=== PATIENT | male | born 1960 | race Caucasian/White ===

== ENCOUNTER 2020-01-06 09:38 | Emergency (ER) | payer OTHER, SELFPAY ==
[2020-01-06 09:49] VITALS: BP 143/84; PULSE 76; RESP 16; TEMP 36.7; O2SAT 100
--- NOTE | 2020-01-06 10:19 | ED.NAVMDI ---
HPI - Nausea/Vomiting/Diarrhea General Chief complaint: Nausea/Vomiting/Diarrhea Stated complaint: diarrhea/body aches/fatigue Source: patient and RN notes reviewed Mode of arrival: ambulatory Limitations: no limitations History of Present Illness HPI Narrative: The patient, previously mostly healthy, presents with about a week and a half long history of diarrhea. Patient states he has 2-3 episodes of loose stools per day; no fever, nausea/vomiting, travel, blood, tenesmus, abdominal pain, sick family, foreign pets/animals, cough, sore throat, loss of taste or smell, rash. He contacted his his doctor by web, and was treated symptomatically and with the suggestion of possible stool cultures. He had a COVID test a week ago, which will be offered to repeat. Related Data Home Medications Medication Instructions Recorded Confirmed metoprolol tartrate 01/06/20 pravastatin 01/06/20 pravastatin 01/06/20 Allergies Allergy/AdvReac Type Severity Reaction Status Date / Time No Known Allergies Allergy Mild Verified 11/01/09 10:33 Review of Systems Review of Systems: Narrative: General/Constitutional: No weight loss,fever Eyes: N0: Redness,discharge Ears/Nose/Throat: No: Epistaxis,ear discharge Respiratory: Denies: Hemoptysis Gastrointestinal: No Vomiting, Bleeding-rectal Skin: No Lumps, eruption Neurologic: No Focal Weakness,Sz Hematologic: Denies: Petechiae/Purpura Psychiatric: No: Suicida ideationl All Other Systems: Reviewed and Negative PMFSH Comments At time of signature, agree with nursing past medical, surgical, social and family history. There is no relevant family history pertinent to the presenting complaint Exam Narrative: Exam Narrative: General Appearance: Well appearing, No distress EYE: PERRLA, Conjunctiva clear Mouth/Throat: Normal appearing, Supple Respiratory: Airway patent, No respiratory distress Cardiovascular: RRR Abdomen: Soft, Non-tender, No massess, No organomegaly Musculoskeletal: Full ROM Skin: Warm, Dry Neurological: A&O x3, CN II-X intact Psychiatric: Normal mood, Normal affect Course Vital Signs Vital signs: Vital Signs Temperature 98.1 F 01/06/20 09:49 Pulse Rate 76 01/06/20 09:49 Respiratory Rate 16 01/06/20 09:49 Blood Pressure 143/84 H 01/06/20 09:49 Pulse Oximetry 100 01/06/20 09:49 Temperature 98.1 F 01/06/20 09:49 Pulse Rate 76 01/06/20 09:49 Respiratory Rate 16 01/06/20 09:49 Blood Pressure 143/84 H 01/06/20 09:49 Pulse Oximetry 100 01/06/20 09:49 Discharge Plan Discharge Clinical Impression: Diarrhea Qualifiers: Diarrhea type: unspecified type Qualified Code(s): R19.7 - Diarrhea, unspecified Patient Disposition: Home, Self-Care Condition: Stable Instructions: Antibiotic Form, Irritable Bowel Syndrome (ED), Acute Diarrhea (ED) Additional Instructions: Also try diet changes & diary, Imodium OTC, Prescriptions: New ciprofloxacin HCl [Cipro] 500 mg tablet 500 mg PO Q12H Qty: 7 RF: 0 No Action pravastatin 20 mg tablet RF: 0 pravastatin 20 mg tablet RF: 0 metoprolol tartrate 25 mg tablet RF: 0 Follow-up/Referrals: Per,Kristie Zamora MD [Primary Care Provider] - Discharge Date/Time: 01/06/20 10:29
== END 2020-01-06 10:29 | disposition home or self-care (01) ==
PROVIDERS: Emergency Provider Emergency Medicine; PCP Family Medicine
DX: R19.7 Diarrhea, unspecified (principal)
CPT/HCPCS: 99203; G0463

== ENCOUNTER 2020-01-06 10:28 | Outpatient (NON) | payer OTHER, SELFPAY ==
[2020-01-06 22:26] LABS: SARS-CoV-2 RNA PCR Negative
== END 2020-01-06 10:29 ==
PROVIDERS: PCP Family Medicine; Visit Provider Emergency Medicine
DX: R19.7 Diarrhea, unspecified (principal); Z20.828 Contact with and (suspected) exposure to other viral communicable diseases
CPT/HCPCS: 87635; C9803; U0003

== ENCOUNTER 2020-01-06 12:06 | Outpatient (CLI) | payer OTHER, SELFPAY | END 2020-01-06 12:07 | disposition home or self-care (01) | PROVIDERS: PCP Family Medicine; Visit Provider Emergency Medicine | DX: R19.7 Diarrhea, unspecified (principal) | CPT/HCPCS: 87045; 87046; 87186; 87427 ==

== ENCOUNTER 2023-01-14 14:42 | Outpatient (CLI) | payer OTHER, SELFPAY ==
--- NOTE | 2023-01-14 | ECHO_ITS ---
Patient Info Name: Marv Coley Age: 62 years : 1960 Gender: Male Ht: 70 in Wt: 215 lbs BSA: 2.22 m2 HR: 67 bpm BP: 117 / 85 mmHg Heart Rhythm: Sinus Rhythm Technical Quality: Good Exam Date: 01/14/2023 3:17 PM Exam Location: [facility] Patient Status: Outpatient Admit Date: 01/14/2023 Staff Ordering Physician: Tae Xavier MD (charles/chan) Supervisor Chemical: Lars Hopson RDCS Attending Provider: Tae Xavier MD (charles/chan) Referring Physician: Duc OBB; Exam Type: CA echo doppler color flow Study Info Indications - palpatation and pre op Complete two-dimensional, color flow and Doppler transthoracic echocardiogram is performed. Summary 1. Complete two-dimensional, color flow and Doppler transthoracic echocardiogram is performed. 2. Left ventricular chamber dimension is normal. 3. Left ventricular systolic function is normal, estimated at 65-70%. 4. The left ventricular diastolic function is grade I diastolic dysfunction. 5. Right ventricular systolic function is normal. 6. No significant valvular disease. Left Ventricle Left ventricular chamber dimension is normal. Left ventricular systolic function is normal, estimated at 65-70%. There is no increased left ventricular wall thickness. The left ventricular diastolic function is grade I diastolic dysfunction. Right Ventricle Right ventricular chamber dimension is normal. Right ventricular systolic function is normal. Left Atria Left atrial chamber dimension is normal. Right Atria Right atrial chamber dimension is normal. Atrial Septum Intact interatrial septum visualized by color flow imaging. Aortic Valve The aortic valve is trileaflet. There is no aortic valve stenosis. There is no aortic valve regurgitation. Pulmonic Valve The pulmonic valve is not well visualized. There is trace pulmonic regurgitation. Mitral Valve There is no mitral valve regurgitation. Tricuspid Valve There is trace tricuspid valve regurgitation. Pericardium/Pleural The pericardium appears epicardial fat pad. There is no pericardial effusion. Inferior Vena Cava Normal inferior vena cava with >50% collapse upon inspiration consistent with normal right atrial pressure, 3 mmHg. Aorta The aortic root size at the sinus of Valsalva is normal. Left Ventricular Outflow Tract Name Value Normal LVOT 2D LVOT Diameter 2.2 cm LVOT Doppler LVOT Peak Gradient 3 mmHg LVOT Mean Gradient 1 mmHg LVOT VTI 20 cm LVOT VTI/AV VTI Ratio 0.7 LVOT Stroke Volume 76 ml LVOT CO 4.3 l/min LVOT CI 1.9 l/min/m2 Pulmonic Valve Name Value Normal RVOT Doppler RVOT Peak Gradient 2 mmHg PV Doppler
== END 2023-01-14 14:43 | disposition home or self-care (01) ==
LOC: ANHCARD 14:43
PROVIDERS: PCP Family Medicine; Visit Provider Internal Medicine
DX: R00.2 Palpitations (principal)
CPT/HCPCS: 93306

== ENCOUNTER 2024-07-31 13:20 | Outpatient (CLI) | payer MEDICARE, SELFPAY ==
--- NOTE | ~2024-07-31 | XR_ITS ---
XR lumbar spine 2-3V 07/31/2024 13:48 Indication: Sciatica Procedure: 3 views lumbar spine Comparison: No prior studies for comparison. Findings: Vertebral body heights are maintained. There is no significant disc narrowing. There is mul tilevel facet hypertrophy. No evidence for spondylolisthesis. There is hypertrophy of the spinous pro cesses. There is levoscoliosis. Sacral foramen are symmetric. Impression: 1: Severe lumbar spondylosis with levoscoliosis. Reviewed, dictated and finalized at location A. Impression: 1: Severe lumbar spondylosis with levoscoliosis.
--- NOTE | ~2024-07-31 | XR_ITS ---
XR hip LT min 2V 07/31/2024 13:48 Indication: Left hip pain Procedure: 2 views left hip Comparison: No prior studies for comparison. Findings: There is mild osteoarthritis of the left hip. No fracture, subluxation or dislocation. No s ignificant soft tissue abnormality. No foreign bodies. Impression: 1: Mild osteoarthritis of the left hip. Reviewed, dictated and finalized at location A. Impression: 1: Mild osteoarthritis of the left hip.
--- OUTSIDE RECORDS SUMMARY | 2024-07-31 14:48 | XMS_ITS | Clinical Summary ---
Author Organization [facility] at [facility] Office Center Address [address] [place] [address] Care Team Providers Care Skate Boarder Name Role Phone Graeme Albarado MD Primary Care Provider [phone] Negrito Kirby MD Unavailable [phone] Allergies No known active allergies Medications metoprolol (LOPRESSOR) 25 mg tablet 1 tablet (25 mg total) 2 (two) times a day Active aspirin 81 mg chewable tablet Take 1 tablet (81 mg total) by mouth 2 (two) times a day Instructed to hold for 5 days prior to surgery per Mirta 2 Active tadalafiL (CIALIS) 5 mg tablet Take 1 tablet (5 mg total) by mouth daily Takes for BPM Active ramipriL (ALTACE) 10 mg capsule ramipril 10 mg capsule TAKE 1 CAPSULE BY MOUTH EVERY DAY Active apixaban (ELIQUIS) 5 mg tabletIndications :atrial fibrillation Take 1 tablet (5 mg total) by mouth 2 (two) times a day 180 tablet 3 4 Active atorvastatin (LIPITOR) 40 mg tablet TAKE 1 TABLET(40 MG) BY MOUTH DAILY 90 tablet 2 4 Active Active Problems Problem Noted Date Diagnosed Date Anticoagulation management encounter 10/08/2023 Paroxysmal atrial fibrillation 05/07/2023 Hyperlipidemia 11/13/2022 Varicose veins of left leg with edema 10/27/2016 Assessment & Plan (09/04/2022 10:48 AM CDT): Following up today status post left EVLT with 16 stab phlebectomies. The stab incisions have healed he is doing well denies any concerns or complaints. Plan: Follow-up as needed. Assessment & Plan (06/22/2022 3:44 PM CERTIFIED SURGICAL FIRST ASSISTANT): Impression: Patient has left lower extremity varicosities with pain despite compression therapy. Venous reflux of the left lower extremity reveals significant reflux throughout the left great saphenous vein. No open ulcerations are noted. Plan: Patient would like to wait for this procedure to be done in one year. Discussed with the patient waiting greater than 6 months would require a new evaluation, noninvasive study, and new insurance authorization. Patient voices understanding. Recommend patient to continue utilizing compression therapy. Patient will call if he wishes to proceed. Follow up as needed. 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 Continue compression therapy. Left lower extremity reflux regional hr manager ordered for further evaluation. Will follow-up in 2-3 weeks. Assessment & Plan (01/31/2019 10:22 AM CDT): Impression: Stable varicose vein left lower extremity which are not painful. His edema is controlled with compression therapy. Plan: Continue daily compression therapy. Patient to follow up on as-needed basis. Abnormal glucose level 01/12/2014 Benign essential hypertension 01/01/2012 Assessment & Plan (06/22/2022 3:45 PM CERTIFIED SURGICAL FIRST ASSISTANT): Impression: Chronic hypertension. Plan: Continue Lopressor 25 mg Assessment & Plan (06/04/2022 1:57 PM CERTIFIED SURGICAL FIRST ASSISTANT): Stable continue metoprolol 25 mg. Assessment & Plan (01/31/2019 10:22 AM CDT): Impression: Stable hypertension. Plan: Continue current antihypertensive regimen as directed by PCP. Benign prostatic hyperplasia 01/01/2012 Resolved Problems Problem Noted Date Diagnosed Date Resolved Date Palpitations 11/13/2022 05/07/2023 Pure hypercholesterolemia 01/01/2012 Assessment & Plan (06/22/2022 3:45 PM CERTIFIED SURGICAL FIRST ASSISTANT): Impression: Chronic hypercholesteremia Plan: Continue pravastatin 20 mg Assessment & Plan (06/04/2022 1:56 PM CERTIFIED SURGICAL FIRST ASSISTANT): Stable continue pravastatin 20 mg. Immunizations Immunization Administration Dates Next Due Influenza, Trivalent, IM (MDV) 01/26/2011 Tdap 11/08/2008 Surgical History Surgery Date Site/Laterality Comments KNEE CARTILAGE SURGERY 05/03/1975 - 05/02/1976 Bilateral ENDOVENOUS ABLATION SAPHENOU S VEIN W/ LASER Left COLONOSCOPY Medical History Medical History Date Comments HTN (hypertension) Varicose veins of left lower extremity Paroxysmal atrial fibrillation (HCC) Hyperlipidemia BPH (benign prostatic hyperplasia) Family History Medical History Relation Name Comments Stroke Father Cancer Mother Relation Name Status Comments Father Mother Social History Tobacco Use Types Packs/Day Years Used Date Smoking Tobacco: Never Smokeless Tobacco: Never Alcohol Use Standard Drinks/Week Comments Yes 0 (1 standard drink = 0.6 oz pur e alcohol) AUDIT-C Answer Date Recorded Q1: How often do you have a drink containing alc ohol? 2-3 times a week 06/15/2023 Q2: How many drinks containi ng alcohol do you have on a typical day when you are drinking? 3 or 4 06/15/2023 Q3: How often do you have si x or more drinks on one occasion? Never 06/15/2023 Personal Safety Answer Date Recorded Have you ever been in or are you currently in a harmful physical or emotional relationship or is someone making you feel afraid or unsafe? Denies 06/30/2023 Sex and Gender Information Value Date Recorded Sex Assigned at Not on file Legal Sex Male 6:22 PM CERTIFIED SURGICAL FIRST ASSISTANT Gender Identity Not on file Sexual Orientation Not on file Obstetrics History Last Filed Vital Signs Vital Sign Reading Time Taken Comments Blood Pressure 120/70 10/08/2023 9:44 AM CDT Pulse 54 10/08/2023 9:44 AM CDT Temperature 36.2 C (97.1 F) 06/30/2023 10:10 AM CERTIFIED SURGICAL FIRST ASSISTANT Respiratory Rate 14 06/30/2023 10:4 0 AM CERTIFIED SURGICAL FIRST ASSISTANT Oxygen Saturation 96% 10/08/2023 9:44 AM CDT Inhaled Oxygen Concentration - - Weight 100.1 kg (220 lb 9.6 oz) 10/08/2023 9:44 AM CDT Height 177.8 cm (5' 10 ) 10/08/2023 9:44 AM CDT Body Mass Index 31.65 10/08/2023 9:44 AM CDT Plan of Treatment Health Maintenance Due Date Last Done Comments Colon Cancer Screening-Colonoscopy 1960 Depression Screening 1960 Fall Risk Assessment 1960 Hepatitis C Screening 1960 Prostate Cancer Screening-PSA 1960 Hepatitis B Screening 1976 Pneumococcal vaccine 65+ (1 of 1 - PCV) 2008 Well Visit 65+ 09/26/2023 Covid-19 Vaccine (2023-2 5 season) 2024 03/09/2022, 08/13/2021, 02/07/2021, Additional history exists Influenza Vaccine (#1) 2024 , 03/03/2022, 01/31/2020, Additional history exists DTaP/Tdap/Td Vaccine (3 - Td or Tdap) 06/12/2029 06/12/2019, 11/08/2008 Zoster Vaccine Completed 06/03/2020, 04/03/2020 Medical Devices Implanted Type Area [employer] Trolley Inspecting Dispatcher Device Identifier Shelf Expiration Date Model / Serial / Lot [employer] Mesh Surgical Mid Anatomical Synthetic Patch 3dmax 5x7in [id number] - [id number] Implanted:Qty: 1 on 06/30/2023 by Negrito Kirby MD at [facility] Right: Abdomen [employer] [id number] 01/29/2028 [id number] / / [id number] Insurance [employer] OPEN ACCESS MEDICARE [facility] MEDICARE SUPPLEMENT Care Teams Skate Boarder Relationship Specialty Start Date End Date Graeme Albarado MD [address] [id number] PCP - General Family Medicine 12/30/18 Negrito Kirby MD [address] [place] [id number] Consulting Physician General Surgery 06/30/23
--- OUTSIDE RECORDS SUMMARY | 2024-07-31 14:48 | XMS_ITS | Data Portability ---
Author Organization [facility] Address [address] [place] [address] Care Team Providers Care Director Of Design Name Role Phone JONOFreemanKRISTIE Primary Care Provider FRANSISCO LYON Physician Office Rep KAUSHAL CELESTIN Urologist Assessment No assessment recorded. Plan of Treatment Reminders Order Date Submit Date Provider Last Modified By Organization Details Last Modified Time Details Appointments None recorde d. Lab lipid panel, serum 2023 024 [facility], [address] [facility], [facility], [place], [address], 4 08:24:40 CMP, serum or plasma 2023 024 [facility], [address] [facility], [place], [address], 4 08:24:41 CBC 2023 024 [facility], [address] [facility], [facility], [place], [address], 4 08:24:46 magnesi um, serum or plasma 2023 024 [facility], [address] [facility], [facility], [place], [address], 4 08:24:44 TSH, ultra-s ensitiv e, serum 2023 024 [facility], [address], [address], [place], [address], 4 08:24:42 HbA1c (hemogl obin A1c), blood 2023 024 [facility], [address], [address], [place], [address], 4 08:24:43 PSA, total, serum or plasma 2023 024 [facility], [address], [address], [place], [address], 4 08:24:45 PSA, total, serum or plasma 2022 023 [facility], [address], [address], [place], [address], 3 12:12:45 magnesi um, serum or plasma 2022 023 [facility], [address], [address], [place], [address], 3 20:08:55 TSH, ultra-s ensitiv e, serum 2022 023 [facility], [address], [address], [place], [address], 3 12:12:44 lipid panel, serum 2022 023 [facility], [address], [address], [place], [address], 3 20:08:54 CMP, serum or plasma 2022 023 [facility], [address], [address], [place], [address], 3 20:08:54 CBC 2022 023 [facility], [address], [address], [place], [address], 3 20:08:55 HbA1c (hemogl obin A1c), blood 2022 023 R[facility]ERTO In-Office Order, Internal Use Only DO Not Attach Compendium DO Not Attach Compendium, Do Not Delete/merge, [id number] 3 11:00:50 lipid panel, serum 2021 022 [facility], [address], [address], [place], [address], 14:12:24 BMP, serum or plasma 2021 022 [facility], [address], [address], [place], [address], 14:12:23 CBC 2021 022 [facility], [address], [address], [place], [address], 14:12:23 urinaly sis, dipstic k 2021 022 R[facility]O In-Office Order, Internal Use Only DO Not Attach Compendium DO Not Attach Compendium, Do Not Delete/merge, [id number] 12:40:01 HbA1c (hemogl obin A1c), blood 2021 022 [facility], [address], [address], [place], [address], 14:12:25 HIV 2 Ab, signal/ cutoff, IA, serum or plasma 2021 022 [facility], [address], [address], [place], [address], 14:12:24 PSA, total, serum or plasma 2021 022 [facility], [address] [facility], [address], [place], [address], 2 14:12:25 SARS CoV 2 IgG Ab, QL IA, serum or plasma 2020 021 [facility], [address] [facility], [address], [place], [address], 1 09:12:59 Referral gastroe nterolo gist referra l - patient had last colonos copy in 06/2024- - needs to set up 10 year C SCope please 2023 024 ROVERTO Gilliam MD, [address], [address], [place], [address], 4 12:26:48 general surgeon referra l - PATIENT IS SCHEDUL ED WITH DR KIRBY 3@2:55P .M [facility] N! 2022 023 [email or web address] Deonte Kirby MD, [address] , [address], [place], [address], 4 11:49:07 cardiol ogist referra l - FH A Fib and CADpati ent has chol and BP and preDM as well as palpita tionspr eop for hernia* to Dr Tomeka aguilera at [facility] n?* [address] [facility], [address], [address], [place], [address], 3 08:52:39 Procedures cryosur som (PROC) 2020 021 [email or web address] Not available 1 12:12:37 Surgeries None recorde d. Imaging XR, hip, unilate ral, 2 or [address] [facility] (Imaging), [address], [place], [address], 5 04:31:31 XR, lumbosa cral spine, 2 or [address] [facility] (Imaging), [address] [facility] [address], [place], [address], 5 04:31:31 US, screeni ng for abdomin al aortic aneurys m [address] [facility] (Imaging), [address] [facility] [address], [place], [address], 4 15:38:44 Medication Orders baclofe n 5 mg tablet 2024 025 [id number], [address], [place], [place], [id number], 5 12:28:15 tadalaf il 5 mg tablet 2023 024 [id number], [address], [place], [place], [id number], 4 13:25:57 tadalaf il 5 mg tablet 2021 022 [facility] #[id number], [address], [place], [place], [id number], 2 12:15:26 Patient TargetsNo targets recorded. Patient Instructions Encounter Date Encounter Id Patient Instructions Last Modified By Organization Details Last Modified Time 10/07/2023 [id number] Medicare Wellnes s Preventive Checklist Not available 10/07/2023 12:12:11 06/26/2024 [id number] A healthy lifestyle: care instructions Not available 06/26/2024 14:16:02 back stretches: exercises Not available 06/26/2024 12:28:10 sciatica: exercises Not available 06/26/2024 12:28:10 low back pain: exercises Not available 06/26/2024 12:28:09 Reason for Referral Physician Office Rep Referral for In termittent palpitations FH A Fib and CADpatient has chol and BP and preDM as well as palpitationspreop for hernia*to Dr Tomeka Teran at [place]?* [facility] Date: 10/06/2022 General Surgeon Referral for Right inguinal hernia PATIENT IS SCHEDULED WITH DR KIRBY 12/01/2022@2:55P.[facility] LOCATION! Referring Physician: [facility], Encounter Date: 10/06/2022 Hvac Manager Referral for Screening for malignant neoplasm of colon patient had last colonoscopy in 06/2024-- needs to set up 10 year C SCope please Referring Physician: Kristie Ghotra, [facility], Encounter Date: 10/07/2023 Results Created Date Observation Date Name Description Value Unit Range Abnormal Flag Note LastModifiedBy Organization Detail LastModifiedTime 11/20/1911/20/2020 SARS- COV-2 ANTIB ALEXIS, IGG sars-cov-2 antibody, IgG Positi ve negati ve Resul ts sugge st recen t or prior infec tion with SARS- CoV-2 . Corre latio n with [facility] risk facto rs and other clini casandra and labor atory findi ngs is recom shantelle d. Serol ogic resul ts shoul d not be used as the sole basis to diagn ose or exclu de recen t SARS- CoV-2 infec tion. False posit alfie resul ts infre quent ly occur due to prior infec tion with other human Coron aviru ses. This assay was perfo rmed using the DiaSo rin Liais on(R) SARS- CoV-2 S1/S2 IgG assay . This assay detec ts antib odies again st SARS- CoV-2 spike prote in inclu ding the cap parts cutter tor lulu gomes (RBD) . Not Available [facility] ([facility]) [address] [facility], [place], [address], 11/20/2020 09:12:59 08/05/19 22 08/05/2021 CBC, PLATE LET, NO DIFFE RENTI AL WBC 4.5 x10e3 /uL 3.4-10 .8 Not Available [facility] ([facility]) [address] [facility], [place], [address], 08/06/2021 14:12:23 08/05/19 22 08/05/2021 CBC, PLATE LET, NO DIFFE RENTI AL RBC 4.72 x10e6 /uL 4.14-5 .80 Not Available [facility] ([facility]) [address] [place], [address], 08/06/2021 14:12:23 08/05/1908/05/2021 CBC, PLATE LET, NO DIFFE RENTI AL hemoglobin 15.6 g/dL 13.0-1 7.7 Not Available [facility] ([facility]) [address] [place], [address], 08/06/2021 14:12:23 08/05/1908/05/2021 CBC, PLATE LET, NO DIFFE RENTI AL hematocrit 44.6 % 37.5-5 1.0 Not Available [facility] ([facility]) [address] [place], [address], 08/06/2021 14:12:23 08/05/19 22 08/05/2021 CBC, PLATE LET, NO DIFFE RENTI AL MCV 95 fL 79-97 Not Available [facility] ([facility]) [address] [place], [address], 08/06/2021 14:12:23 08/05/1908/05/2021 CBC, PLATE LET, NO DIFFE RENTI AL MCH 33.1 pg 26.6-3 3.0 above high normal Not Available [facility] ([facility]) [address] [place], [address], 08/06/2021 14:12:23 08/05/19 22 08/05/2021 CBC, PLATE LET, NO DIFFE RENTI AL MCHC 35.0 g/dL 31.5-3 5.7 Not Available [facility] ([facility]) [address] [place], [address], 08/06/2021 14:12:23 08/05/19 22 08/05/2021 CBC, PLATE LET, NO DIFFE RENTI AL RDW 11.9 % 11.6-1 5.4 Not Available [facility] ([facility]) [address] [place], [address], 08/06/2021 14:12:23 08/05/19 22 08/05/2021 CBC, PLATE LET, NO DIFFE RENTI AL platelets 247 x10e3 /uL 150-45 0 Not Available [facility] ([facility]) [address] [place], [address], 08/06/2021 14:12:23 08/05/19 22 08/05/2021 CBC, PLATE LET, NO DIFFE RENTI AL NRBC FOOT PRESS OPERATOR Not Available [facility] ([facility]) [address] [place], [address], 08/06/2021 14:12:23 08/05/19 22 08/05/2021 BASIC METAB OLIC PANEL (8) glucose 100 mg/dL 65-99 above high normal Not Available [facility] ([facility]) [address] [place], [address], 08/06/2021 14:12:23 08/05/19 22 08/05/2021 BASIC METAB OLIC PANEL (8) BUN 24 mg/dL 8-27 Not Available [facility] ([facility]) [address] [place], [address], 08/06/2021 14:12:23 08/05/19 22 08/05/2021 BASIC METAB OLIC PANEL (8) creatinine 1.00 mg/dL 0.76-1 .27 Not Available [facility] ([facility]) [address], [place], [address], 08/06/2021 14:12:23 08/05/19 22 08/05/2021 BASIC METAB OLIC PANEL (8) eGFR 85 mL/mi n/1.7 3 >59 Not Available [facility] ([facility]) [address], [place], [address], 08/06/2021 14:12:23 08/05/19 22 08/05/2021 BASIC METAB OLIC PANEL (8) BUN/creatini ne ratio 24 10-24 Not Available [facility] ([facility]) [address] [facility], [place], [address], 08/06/2021 14:12:23 08/05/19 22 08/05/2021 BASIC METAB OLIC PANEL (8) sodium 138 mmol/ L 134-14 4 Not Available [facility] ([facility]) [address] [facility], [place], [address], 08/06/2021 14:12:23 08/05/19 22 08/05/2021 BASIC METAB OLIC PANEL (8) potassium 5.3 mmol/ L 3.5-5. 2 above high normal Not Available [facility] ([facility]) [address], [place], [address], 08/06/2021 14:12:23 08/05/19 22 08/05/2021 BASIC METAB OLIC PANEL (8) chloride 102 mmol/ L 96-106 Not Available [facility] ([facility]) [address] [facility] [place], [address], 08/06/2021 14:12:23 08/05/19 22 08/05/2021 BASIC METAB OLIC PANEL (8) carbon dioxide, total 22 mmol/ L 20-29 Not Available [facility] ([facility]) [address] [facility] [place], [address], 08/06/2021 14:12:23 08/05/19 22 08/05/2021 BASIC METAB OLIC PANEL (8) calcium 9.4 mg/dL 8.6-10 .2 Not Available [facility] ([facility]) [address] [facility] [place], [address], 08/06/2021 14:12:23 08/05/19 22 08/05/2021 LIPID PANEL cholesterol, total 182 mg/dL 100-19 9 Not Available [facility] ([facility]) [address] [facility] [place], [address], 08/06/2021 14:12:24 08/05/19 22 08/05/2021 LIPID PANEL triglyceride s 92 mg/dL 0-149 Not Available [facility] ([facility]) [address] [facility], [place], [address], 08/06/2021 14:12:24 08/05/19 22 08/05/2021 LIPID PANEL HDL cholesterol 51 mg/dL >39 Not Available [facility]) [address] [facility] [place], [address], 08/06/2021 14:12:24 08/05/19 22 08/05/2021 LIPID PANEL VLDL cholesterol casandra 17 mg/dL 5-40 Not Available [facility] ([facility]) [address] [facility] [place], [address], 08/06/2021 14:12:24 08/05/19 22 08/05/2021 LIPID PANEL LDL chol calc ([facility]) 114 mg/dL 0-99 above high normal Not Available [facility] ([facility]) [address] [facility] [place], [address], 08/06/2021 14:12:24 08/05/19 22 08/05/2021 LIPID PANEL comment: FOOT PRESS OPERATOR Not Available [facility] ([facility]) [address] [facility] [place], [address], 08/06/2021 14:12:24 08/05/19 22 08/06/2021 PANEL 47032 0 HIV-2 Ab-O.D. ratio NEGATI VE neg:<1 .00 Inter preta tion: A repea tedly react alfie HIV-2 resul t may indic ate infec tion with HIV-2 virus . Howev er, HIV1 posit alfie patie nts (50-9 0%) may also react in HIV-2 EIA. React alfie resul ts shoul d be inves tigat ed by suppl ement al tests . Posit alfie HIV-2 resul ts shoul d be consi dered indic ative of infec tion if HIV-1 has been ruled out with negat alfie HIV-1 testi ng, patie nt has epide miolo gical risk facto rs for HIV-2 , and suppl ement al tests such as HIV-2 Immun oblot (Inve stiga young l use only) show the prese nce of HIV-2 speci fic viral bands . Not Available [facility] ([facility]) [address] [facility], [place], [address], 08/06/2021 14:12:24 08/05/19 22 08/05/2021 HEMOG LOBIN A1C hemoglobin A1C 5.4 % 4.8-5. 6 Predi abete s: 5.7 - 6.4 Diabe tristan: >6.4 Glyce esme contr ol for adult s with diabe tristan: <7.0 Not Available [facility] ([facility]) [address] [facility], [place], [address], 08/06/2021 14:12:24 08/05/19 22 08/05/2021 PROST ATE-S PECIF IC AG prostate specific Ag 1.0 NG/mL 0.0-4. 0 Beba ECLIA metho dolog y. Accor ding to the Ameri can Urolo gical Assoc iatio n, Serum PSA shoul d decre ase and remai n at undet ectab le level s after radic al prost atect martínez. The AUA defin es bioch emica l recur rence as an initi al PSA value 0.2 ng/mL or great er follo wed by a subse quent confi rmato ry PSA value 0.2 ng/mL or great er. Value s obtai lupillo with diffe rent assay metho ds or kits canno t be used inter moya earebekahy . Resul ts canno t be inter prete d as absol [place] evide nce of the prese nce or absen ce of [facility]. Not Available [facility] ([facility]) [address] [facility], [place], [address], 08/06/2021 14:12:25 08/05/19 22 08/08/2021 AST (SGOT ) AST (SGOT) 23 IU/L 0-40 Not Available [facility] ([facility]) [address] [facility], [place], [address], 08/08/2021 16:13:06 08/05/19 22 08/08/2021 ALT (SGPT ) ALT (SGPT) 26 IU/L 0-44 Not Available [facility] ([facility]) [address] [facility], [place], [address], 08/08/2021 16:13:06 08/05/19 22 08/08/2021 ROBEL EN AUTHO RIZAT ION written authorizatio n COMMEN T Robel en Autho rizat ion Recei reinier. Autho rizat ion recei reinier from KRISTIE GHOTRA MD 08-08 Logge d by Sulema Ayers n Not Available [facility] ([facility]) [address] [place], [address], 08/08/2021 16:13:07 08/05/19 22 08/04/2021 urina lysis , dipst ick Leukocytes Negati ve Not Available In-Office Order Internal Use Only DO Not Attach Compendium DO Not Attach Compendium, Do Not Delete/merge, [id number] 08/04/2021 12:24:35 08/05/19 22 08/04/2021 urina lysis , dipst ick Nitrite negati ve Not Available In-Office Order Internal Use Only DO Not Attach Compendium DO Not Attach Compendium, Do Not Delete/merge, 08/04/2021 12:24:35 08/05/19 22 08/04/2021 urina lysis , dipst ick Urobilinogen .2 Not Available In-Of fice Order Internal Use Only DO Not Attach Compendium DO Not Attach Compendium, Do Not Delete/merge, 08/04/2021 12:24:35 08/05/19 22 08/04/2021 urina lysis , dipst ick Protein Negati ve Not Available In-Office Order Internal Use Only DO Not Attach Compendium DO Not Attach Compendium, Do Not Delete/merge, 08/04/2021 12:24:35 08/05/19 22 08/04/2021 urina lysis , dipst ick pH 6.0 Not Available In-Office Order Internal Use Only DO Not Attach Compendium DO Not Attach Compendium, Do Not Delete/merge, 08/04/2021 12:24:35 08/05/19 22 08/04/2021 urina lysis , dipst ick Blood Negati ve Not Available In-Office Order Internal Use Only DO Not Attach Compendium DO Not Attach Compendium, Do Not Delete/merge, 08/04/2021 12:24:35 08/05/19 22 08/04/2021 urina lysis , dipst ick Specific [place] 1.010 Not Available In-Off ice Order Internal Use Only DO Not Attach Compendium DO Not Attach Compendium, Do Not Delete/merge, 08/04/2021 12:24:35 08/05/19 22 08/04/2021 urina lysis , dipst ick Ketone Negati ve Not Available In-Office Order Internal Use Only DO Not Attach Compendium DO Not Attach Compendium, Do Not Delete/merge, 08/04/2021 12:24:35 08/05/19 22 08/04/2021 urina lysis , dipst ick Bilirubin Negati ve Not Available In-Office Order Internal Use Only DO Not Attach Compendium DO Not Attach Compendium, Do Not Delete/merge, 08/04/2021 12:24:35 08/05/19 22 08/04/2021 urina lysis , dipst ick Glucose Negati ve Not Available In-Office Order Internal Use Only DO Not Attach Compendium DO Not Attach Compendium, Do Not Delete/merge, [id number] 08/04/2021 12:24:35 08/05/19 22 08/04/2021 urina lysis , dipst ick Appearance Clear Not Available In-Offi ce Order Internal Use Only DO Not Attach Compendium DO Not Attach Compendium, Do Not Delete/merge, [id number] 08/04/2021 12:24:35 08/05/19 22 08/04/2021 urina lysis , dipst ick Color Yellow Not Available In-Office Order Internal Use Only DO Not Attach Compendium DO Not Attach Compendium, Do Not Delete/merge, 08/04/2021 12:24:35 10/07/19 23 10/06/2022 LIPID PANEL cholesterol, total 163.3 mg/dL 140.0- 200.0 Not Available [facility] [address] [place] [address], [address], 10/06/2022 20:08:54 10/07/19 23 10/06/2022 LIPID PANEL triglyceride s 81 mg/dL <=150 Not Available [facility] [address] [place], [address], 10/06/2022 20:08:54 10/07/19 23 10/06/2022 LIPID PANEL HDL cholesterol 50.6 mg/dL 40.0-1 00.0 Not Available [facility] [address] [place], [address], 10/06/2022 20:08:54 10/07/19 23 10/06/2022 LIPID PANEL VLDL cholesterol casandra 16.20 mg/dL 5.00-4 0.00 Not Available [facility] [address] [place] [address], [address], 10/06/2022 20:08:54 10/07/19 23 10/06/2022 LIPID PANEL LDL chol calc ([facility]) 97.4 mg/dL 0.0-99 .0 Not Available [facility] [address] [place], [address], 10/06/2022 20:08:54 10/07/19 23 10/06/2022 COMP. METAB OLIC PANEL (14) glucose 105 mg/dL 65-99 above high normal ANION GP 15.0 mmol/ L N OSMOL 280.0 mOsM/ L N REFER ENCE RANGE : 275.0 -301. 0 Not Available [facility] [address] [place], [address], 10/06/2022 20:08:54 10/07/19 23 10/06/2022 COMP. METAB OLIC PANEL (14) BUN 19 mg/dL 8-26 Not Available [facility] [address] [place] [address], [address], 10/06/2022 20:08:54 10/07/19 23 10/06/2022 COMP. METAB OLIC PANEL (14) creatinine 0.85 mg/dL 0.50-1 .40 Not Available [facility] [address] [place], [address], 10/06/2022 20:08:54 10/07/19 23 10/06/2022 COMP. METAB OLIC PANEL (14) eGFR 97 mL/mi n/1.7 3 >=60 Not Available [facility] [address] [place], [address], 10/06/2022 20:08:54 10/07/19 23 10/06/2022 COMP. METAB OLIC PANEL (14) BUN/creatini ne ratio 22.0 Not Available [facility] [address] [place], [address], 10/06/2022 20:08:54 10/07/19 23 10/06/2022 COMP. METAB OLIC PANEL (14) sodium 139.0 mmol/ L 136.0- 144.0 Not Available [facility] [address] [place], [address], 10/06/2022 20:08:54 10/07/19 23 10/06/2022 COMP. METAB OLIC PANEL (14) potassium 4.7 mmol/ L 3.5-5. 3 Not Available [facility] [address] [place], [address], 10/06/2022 20:08:54 10/07/19 23 10/06/2022 COMP. METAB OLIC PANEL (14) chloride 103 mmol/ l 101-11 1 Not Available [facility] [address] [place], [address], 10/06/2022 20:08:54 10/07/19 23 10/06/2022 COMP. METAB OLIC PANEL (14) carbon dioxide, total 26.5 mmol/ L 21.0-3 2.0 Not Available [facility] [address] [place], [address], 10/06/2022 20:08:54 10/07/19 23 10/06/2022 COMP. METAB OLIC PANEL (14) calcium 9.6 mg/dL 8.2-10 .0 Not Available [facility] [address] [place], [address], 10/06/2022 20:08:54 10/07/19 23 10/06/2022 COMP. METAB OLIC PANEL (14) protein, total 6.9 g/dL 6.7-8. 2 Not Available [facility] [address] [place], [address], 10/06/2022 20:08:54 10/07/19 23 10/06/2022 COMP. METAB OLIC PANEL (14) albumin 4.4 g/dL 3.5-5. 5 Not Available [facility] [address] [place], [address], 10/06/2022 20:08:54 10/07/19 23 10/06/2022 COMP. METAB OLIC PANEL (14) globulin, total 2.5 g/dL 1.5-4. 5 Not Available [facility] [address] [place] [address], [address], 10/06/2022 20:08:54 10/07/19 23 10/06/2022 COMP. METAB OLIC PANEL (14) A/G ratio 2.0 Not Available [facility] Department [address] [place] [address], [address], 10/06/2022 20:08:54 10/07/19 23 10/06/2022 COMP. METAB OLIC PANEL (14) bilirubin, total 0.6 mg/dL 0.0-1. 2 Not Available [facility] [address] [place] [address], [address], 10/06/2022 20:08:54 10/07/19 23 10/06/2022 COMP. METAB OLIC PANEL (14) alkaline phosphatase 71.7 IU/L 42.0-1 21.0 Not Available [facility] [address] [place] [address], [address], 10/06/2022 20:08:54 10/07/19 23 10/06/2022 COMP. METAB OLIC PANEL (14) AST (SGOT) 18.7 U/L 10.0-4 2.0 Not Available [facility] [address] [place] [address], [address], 10/06/2022 20:08:54 10/07/19 23 10/06/2022 COMP. METAB OLIC PANEL (14) ALT (SGPT) 19.7 U/L 10.0-6 0.0 Not Available [facility] [address] [place] [address], [address], 10/06/2022 20:08:54 10/07/19 23 10/06/2022 CBC, PLATE LET, NO DIFFE RENTI AL WBC 4.9 K/uL 3.4-10 .8 Not Available [facility] [address] [place], [address], 10/06/2022 20:08:55 10/07/19 23 10/06/2022 CBC, PLATE LET, NO DIFFE RENTI AL RBC 4.9 M/uL 4.5-6. 3 Not Available [facility] [address] [place], [address], 10/06/2022 20:08:55 10/07/19 23 10/06/2022 CBC, PLATE LET, NO DIFFE RENTI AL hemoglobin 15.1 g/dL 13.5-1 7.5 Not Available [facility] [address] [place], [address], 10/06/2022 20:08:55 10/07/19 23 10/06/2022 CBC, PLATE LET, NO DIFFE RENTI AL hematocrit 46.8 % 40.0-5 2.0 Not Available [facility] [address] [place], [address], 10/06/2022 20:08:55 10/07/19 23 10/06/2022 CBC, PLATE LET, NO DIFFE RENTI AL MCV 96 fL 80-95 above high normal Not Available [facility] [address] [place], [address], 10/06/2022 20:08:55 10/07/19 23 10/06/2022 CBC, PLATE LET, NO DIFFE RENTI AL MCH 31 pg 27-32 Not Available [facility] [address] [place], [address], 10/06/2022 20:08:55 10/07/1910/06/2022 CBC, PLATE LET, NO DIFFE RENTI AL MCHC 32 g/dL 32-36 Not Available [facility] [address] [place], [address], 10/06/2022 20:08:55 10/07/19 23 10/06/2022 CBC, PLATE LET, NO DIFFE RENTI AL RDW 12.0 % 11.5-1 4.5 Not Available [facility] [address] [place], [address], 10/06/2022 20:08:55 10/07/19 23 10/06/2022 CBC, PLATE LET, NO DIFFE RENTI AL platelets 245 K/uL 155-37 9 MPV 9.7 FL 8.9-1 2.7 N Not Available [facility] Department [address] [place], [address], 10/06/2022 20:08:55 10/07/19 23 10/06/2022 CBC, PLATE LET, NO DIFFE RENTI AL NRBC 0 % Not Available [facility] Department [address] [place], [address], 10/06/2022 20:08:55 10/07/19 23 10/07/2022 PROST ATE-S PECIF IC AG prostate specific Ag 1.4 NG/mL 0.0-4. 0 Beba ECLIA metho dolog y. Accor ding to the [employer] [facility] [employer] n, Serum PSA shoul d decre ase and remai n at undet ectab le level s after radic al prost atect martínez. The [facility] defin es bioch emica l recur rence as an initi al PSA value 0.2 ng/mL or great er follo wed by a subse quent confi rmato ry PSA value 0.2 ng/mL or great er. Value s obtai lupillo with diffe rent assay metho ds or kits canno t be used inter moya eaze . Resul ts canno t be inter prete d as absol [place] evide nce of the prese nce or absen ce of binh murphy se. Not Available [facility] ([facility]) [address], [place], [address], 10/07/2022 12:12:45 06/06/20 23 10/07/2022 TSH RFX ON ABNOR MAL TO FREE T4 TSH 1.190 uIU/m L 0.450- 4.500 Not Available [facility] ([facility]) [address] [facility], [place], [address], 10/07/2022 12:12:44 10/07/19 23 10/06/2022 MAGNE SIUM magnesium 1.90 mg/L 1.70-2 .50 Not Available [facility] Him Department [address] [place], [address], 10/06/2022 20:08:55 10/07/19 23 10/06/2022 HbA1c (hemo globi n A1c), blood HbA1c 5.2 Not Available In-Office Order Internal Use Only DO Not Attach Compendium DO Not Attach Compendium, Do Not Delete/merge, [id number] 10/05/2022 22:28:36 10/07/19 24 10/08/2023 LIPID PANEL cholesterol, total 135 mg/dL 100-19 9 Not Available [facility] ([facility]) [address] [facility], [place], [address], 10/08/2023 08:24:40 10/07/19 24 10/08/2023 LIPID PANEL triglyceride s 69 mg/dL 0-149 Not Available [facility] ([facility]) [address] [facility], [place], [address], 10/08/2023 08:24:40 10/07/19 24 10/08/2023 LIPID PANEL HDL cholesterol 56 mg/dL >39 Not Available [facility] ([facility]) [address] [facility], [place], [address], 10/08/2023 08:24:40 10/07/19 24 10/08/2023 LIPID PANEL VLDL cholesterol casandra 14 mg/dL 5-40 Not Available [facility] ([facility]) [address] [facility], [place], [address], 10/08/2023 08:24:40 10/07/19 24 10/08/2023 LIPID PANEL LDL chol calc ([facility]) 65 mg/dL 0-99 Not Available [facility] ([facility]) [address] [place], [address], 10/08/2023 08:24:40 10/07/19 24 10/08/2023 COMP. METAB OLIC PANEL (14) glucose 111 mg/dL 70-99 above high normal Not Available [facility] ([facility]) [address] [place], [address], 10/08/2023 08:24:41 10/07/19 24 10/08/2023 COMP. METAB OLIC PANEL (14) BUN 19 mg/dL 8-27 Not Available [facility] ([facility]) [address] [place], [address], 10/08/2023 08:24:41 10/07/19 24 10/08/2023 COMP. METAB OLIC PANEL (14) creatinine 0.96 mg/dL 0.76-1 .27 Not Available [facility] ([facility]) [address] [place], [address], 10/08/2023 08:24:41 10/07/19 24 10/08/2023 COMP. METAB OLIC PANEL (14) eGFR 88 mL/mi n/1.7 3 >59 Not Available [facility] ([facility]) [address] [place], [address], 10/08/2023 08:24:41 10/07/19 24 10/08/2023 COMP. METAB OLIC PANEL (14) BUN/creatini ne ratio 20 10-24 Not Available [facility] ([facility]) [address] [place], [address], 10/08/2023 08:24:41 10/07/19 24 10/08/2023 COMP. METAB OLIC PANEL (14) sodium 141 mmol/ L 134-14 4 Not Available [facility] ([facility]) [address] [facility] [place], [address], 10/08/2023 08:24:41 10/07/19 24 10/08/2023 COMP. METAB OLIC PANEL (14) potassium 5.4 mmol/ L 3.5-5. 2 above high normal Not Available [facility] ([facility]) [address] [facility] [place], [address], 10/08/2023 08:24:41 10/07/19 24 10/08/2023 COMP. METAB OLIC PANEL (14) chloride 102 mmol/ L 96-106 Not Available [facility] ([facility]) [address] [place], [address], 10/08/2023 08:24:41 10/07/19 24 10/08/2023 COMP. METAB OLIC PANEL (14) carbon dioxide, total 25 mmol/ L 20-29 Not Available [facility] ([facility]) [address] [facility] [place], [address], 10/08/2023 08:24:41 10/07/19 24 10/08/2023 COMP. METAB OLIC PANEL (14) calcium 10.0 mg/dL 8.6-10 .2 Not Available [facility] ([facility]) [address] [facility] [place], [address], 10/08/2023 08:24:41 10/07/19 24 10/08/2023 COMP. METAB OLIC PANEL (14) protein, total 7.3 g/dL 6.0-8. 5 Not Available [facility] ([facility]) [address] [facility] [place], [address], 10/08/2023 08:24:41 10/07/19 24 10/08/2023 COMP. METAB OLIC PANEL (14) albumin 4.5 g/dL 3.9-4. 9 Not Available [facility] ([facility]) [address] [facility] [place], [address], 10/08/2023 08:24:41 10/07/19 24 10/08/2023 COMP. METAB OLIC PANEL (14) globulin, total 2.8 g/dL 1.5-4. 5 Not Available [facility] ([facility]) [address] [facility] [place], [address], 10/08/2023 08:24:41 10/07/19 24 10/08/2023 COMP. METAB OLIC PANEL (14) A/G ratio 1.6 1.2-2. 2 Not Available [facility] ([facility]) [address] [facility] [place], [address], 10/08/2023 08:24:41 10/07/19 24 10/08/2023 COMP. METAB OLIC PANEL (14) bilirubin, total 0.9 mg/dL 0.0-1. 2 Not Available [facility] ([facility]) [address] [facility] [place], [address], 10/08/2023 08:24:41 10/07/19 24 10/08/2023 COMP. METAB OLIC PANEL (14) alkaline phosphatase 69 IU/L 44-121 Not Available [facility] ([facility]) [address] [facility], [place], [address], 10/08/2023 08:24:41 10/07/19 24 10/08/2023 COMP. METAB OLIC PANEL (14) AST (SGOT) 19 IU/L 0-40 Not Available [facility] ([facility]) [address] [facility] [place], [address], 10/08/2023 08:24:41 10/07/19 24 10/08/2023 COMP. METAB OLIC PANEL (14) ALT (SGPT) 26 IU/L 0-44 Not Available [facility] ([facility]) [address] [facility], [place], [address], 10/08/2023 08:24:41 10/07/1910/08/2023 TSH RFX ON ABNOR MAL TO FREE T4 TSH 1.190 uIU/m L 0.450- 4.500 Not Available [facility] ([facility]) [address] [facility], [place], [address], 10/08/2023 08:24:42 10/07/1910/08/2023 HEMOG LOBIN A1C hemoglobin A1C 5.4 % 4.8-5. 6 Predi abete s: 5.7 - 6.4 Diabe tristan: >6.4 Glyce esme contr ol for adult s with diabe tristan: <7.0 Not Available [facility] ([facility]) [address] [facility], [place], [address], 10/08/2023 08:24:43 10/07/1910/08/2023 MAGNE SIUM magnesium 2.1 mg/dL 1.6-2. 3 Not Available [facility] ([facility]) [address] [facility], [place], [address], 10/08/2023 08:24:44 10/07/1910/08/2023 PROST ATE-S PECIF IC AG prostate specific Ag 1.3 NG/mL 0.0-4. 0 Beba ECLIA metho dolog y. Accor ding to the Ameri can [employer] g[employer] iatio n, Serum PSA shoul d decre ase and remai n at undet ectab le level s after radic al prost atect martínez. The AUA defin es bioch emica l recur rence as an initi al PSA value 0.2 ng/mL or great er follo wed by a subse quent confi rmato ry PSA value 0.2 ng/mL or great er. Value s obtai lupillo with diffe rent assay metho ds or kits canno t be used inter moya eably . Resul ts canno t be inter prete d as absol [place] evide nce of the prese nce or absen ce of malig nant disea se. Not Available [facility] ([facility]) [address] [facility], [place], [address], 10/08/2023 08:24:45 10/07/19 24 10/08/2023 CBC, PLATE LET, NO DIFFE RENTI AL WBC 6.1 x10e3 /uL 3.4-10 .8 Not Available [facility] ([facility]) [address] [facility], [place], [address], 10/08/2023 08:24:46 10/07/19 24 10/08/2023 CBC, PLATE LET, NO DIFFE RENTI AL RBC 4.81 x10e6 /uL 4.14-5 .80 Not Available [facility] ([facility]) [address] [facility], [place], [address], 10/08/2023 08:24:46 10/07/19 24 10/08/2023 CBC, PLATE LET, NO DIFFE RENTI AL hemoglobin 15.6 g/dL 13.0-1 7.7 Not Available [facility] ([facility]) [address] [facility], [place], [address], 10/08/2023 08:24:46 10/07/19 24 10/08/2023 CBC, PLATE LET, NO DIFFE RENTI AL hematocrit 44.7 % 37.5-5 1.0 Not Available [facility] ([facility]) [address] [facility], [place], [address], 10/08/2023 08:24:46 10/07/1910/08/2023 CBC, PLATE LET, NO DIFFE RENTI AL MCV 93 fL 79-97 Not Available [facility] ([facility]) [address] [place], [address], 10/08/2023 08:24:46 10/07/19 24 10/08/2023 CBC, PLATE LET, NO DIFFE RENTI AL MCH 32.4 pg 26.6-3 3.0 Not Available [facility] ([facility]) [address] [facility], [place], [address], 10/08/2023 08:24:46 10/07/19 24 10/08/2023 CBC, PLATE LET, NO DIFFE RENTI AL MCHC 34.9 g/dL 31.5-3 5.7 Not Available [facility] ([facility]) [address] [facility], [place], [address], 10/08/2023 08:24:46 10/07/19 24 10/08/2023 CBC, PLATE LET, NO DIFFE RENTI AL RDW 11.7 % 11.6-1 5.4 Not Available [facility] ([facility]) [address] [facility], [place], [address], 10/08/2023 08:24:46 10/07/19 24 10/08/2023 CBC, PLATE LET, NO DIFFE RENTI AL platelets 267 x10e3 /uL 150-45 0 Not Available [facility] ([facility]) [address] [facility], [place], [address], 10/08/2023 08:24:46 01/05/20 24 01/06/2024 POTAS SIUM potassium 4.8 mmol/ L 3.5-5. 2 Not Available [facility] ([facility]) [address] [facility], [place], [address], 01/06/2024 03:08:26 01/22/20 23 01/14/2023 US, doppl er echoc ardio gram, w/ color flow No observ ation record ed. [email or web address] Not Available 2022 15:56:22 Result Notes None recorded. Problems Name Problem SNOMED Code Status Onset Date Resolution Date Notes Provider Name and Address Organization Details Recorded Time Bilatera l knee pain Active 2019 Kristie Ghotra MD Attn: Accounting ,[address] [facility], [place], [address] , [place] [facility] 07:51:43 Long-ter m drug therapy Completed 201908/30/2023 Kristie Ghotra MD Attn: Accounting ,[address] [facility], [place], [address] , [place] [facility] 4 07:52:11 COVID-19 846162735 Active 2019 Not Available [facility] 14:28:18 Paroxysm al atrial fibrilla tion 307693479 Active 2022 rate controll ed Kristie Ghotra MD Attn: Accounting ,[address] [facility], [place], [address] , [place] [facility] 4 08:05:38 Erectile dysfunct ion 713771931 Active 2023 Kristie Ghotra MD Attn: Accounting ,[address] [facility], [place], [address] , [place] [facility] 4 08:36:05 Benign prostati c hyperpla tessa 887945691 Active 2011 Location : None;Sev erity: Moderate ;Progres s: Stable;A dded By: Kristie Ghotra;Add to Current Problems : NO Not Available [facility] 14:28:18 Glucose level outside referenc e range 514751326 Active 2013 Location : None;Sev erity: Moderate ;Progres s: Stable;A dded By: Kristie Ghotra;Add to Current Problems : YES Not Available [facility] 14:28:18 Pain in limb 99571578 Completed 201212/31/2014 Location : None;Sev erity: Moderate ;Progres s: Stable;A dded By: Tali Melissa i;A dd to Current Problems : NO Not Available [facility] 7 09:51:33 Benign essentia l hyperten jhonny 9100965 Active 2011 Location : None;Sev erity: Moderate ;Progres s: Stable;A dded By: Tali Melissa i;A dd to Current Problems : YES Not Available [facility] 14:28:18 Pure hypercho lesterol emia 965656462 Active 2011 Location : None;Sev erity: Moderate ;Progres s: Stable;A dded By: Tali Melissa i;Hunter dd to Current Problems : YES Not Available [facility] 1 14:28:17 Screenin alex morel Completed 201403/01/2015 Location : None;Sev erity: Moderate ;Progres s: Stable;A dded By: Tali Melissa i;Hunter dd to Current Problems : YES Not Available [facility] 7 09:51:33 Shoulder joint pain [id number] Completed 201306/25/2013 Location : None;Sev erity: Moderate ;Progres s: Stable;A dded By: Gracia Garcia;Add to Current Problems : NO Not Available [facility] 7 09:51:33 Neuralgi a [id number] Completed 201306/25/2013 Location : None;Sev erity: Moderate ;Progres s: Stable;A dded By: Anna Acuna;Add to Current Problems : NO Not Available [facility] 7 09:51:33 Problem Notes None recorded. Procedures Surgical History Date Name Laterality Status Provider Name and Address Organization Details Recorded Time 4 Hernia Repair completed Kristie Ghotra MD Attn: Accounting,[address] [place] [address], [address], [place] [facility] 10/07/2023 11:49:26 3 stripping of vein completed Kristie Ghotra MD Attn: Accounting,[address] [place], [address], [place] [facility] 10/06/2022 10:42:27 2 Vasectomy completed Gracia Martinez [facility] 05/14/2016 12:23:16 Unlisted px arthroscopy completed Gracia Martinez [facility] 05/14/2016 12:23:54 Imaging Results Imaging Date Name Status LastModified by Organiz ation Details LastModified Time 01/14/2023 US, doppler echocardiogr am, w/ color flow completed Information not available 01/21/2023 15:56:22 Procedure Notes None recorded. Medical Equipment None Reported. Allergies No known drug allergies Medications Name Sig Start Date Stop Date Status Note LastModified by Organization Details LastModified Time Prescript ion - Prior Authoriza tion Request 08/04 completed Levitra (Vardena stephen) Not Available Not Available Not Available atorvasta tin 40 mg tablet TAKE 1 TABLET AT BEDTIME active Not Available Not Available No t Available Medrol (Terell) 4 mg tablets in a dose pack Take as directed 07/24 completed Allow Substitu tion: True Not Available Not Available Not Available ciproflox acin 500 mg tablet TK 1 T PO Q 12 H 07/17 completed Not Available Not Available Not Available oxycodone -acetamin ophen 5 mg-325 mg tablet TAKE 1 TO 2 TABLETS BY MOUTH EVERY 6 HOURS NEEDED FOR PAIN 10/06 completed Not Available Not Available Not Available quinapril 10 mg tablet Take 1 tablet twice a day by oral route. 05/15 completed Not Available Not Available Not Available alprazola m 0.5 mg tablet TAKE 1 TABLET BY MOUTH 1 HOUR BEFORE PROCEDUR E AND ALSO TAKE 1 TABLET PRIOR TO ARRIVING TO PROCEDUR E 08/01 completed Not Available Not Available Not Available tamsulosi n 0.4 mg capsule TAKE 1 CAPSULE BY MOUTH TWICE DAILY 06/12 completed ineffect alfie Not Available Not Available Not Available ibuprofen 200 mg tablet Take 1 tablet every 6 hours by oral route as needed. active Not Available Not Available No t Available omeprazol e 20 mg capsule,d elayed release TAKE 1 CAPSULE BY MOUTH EVERY DAY 08/04 completed Not Available Not Available Not Available aspirin 81 mg chewable tablet Take 1 tablet po daily 2011 active RxNorm: 553866;A llow Substitu tion: True Not Available Not Available Not Available quinapril 20 mg tablet TAKE 1 TABLET BY MOUTH EVERY DAY 03/31 completed Not Available Not Available Not Available pravastat in 20 mg tablet take one by mouth daily in evening 10/06 completed Not Available Not Available Not Available finasteri de 5 mg tablet TAKE 1 TABLET BY MOUTH EVERY DAY active Not Available Not Available No t Available ramipril 10 mg capsule TAKE 1 CAPSULE BY MOUTH EVERY DAY active Not Available Not Available No t Available amoxicill in 875 mg-potass ium clavulana te 125 mg tablet Take 1 tablet every 12 hours by oral route for 10 days. 08/05 completed Not Available Not Available Not Available Flexeril 10 mg tablet 1 tab po tid prn 07/24 completed RxNorm: 548954;A llow Substitu tion: True Not Available Not Available Not Available vardenafi l 10 mg tablet TAKE 1 TABLET BY MOUTH DAILY 11/19 completed Not Available Not Available Not Available vardenafi l 20 mg tablet TAKE 1 TABLET BY MOUTH EVERY DAY NEEDED 03/31 completed Not Available Not Available Not Available tadalafil 5 mg tablet Take by oral route for 30 days. 2023 active Not Available Not Available Not Avai lable metoprolo l tartrate 25 mg tablet TAKE 1 TABLET BY MOUTH TWICE DAILY active Not Available Not Available No t Available Advil PM 1 at HS prn active Not Available Not Available No t Available Myrbetriq 25 mg tablet,ex tended release TAKE 1 TABLET BY MOUTH DAILY active Not Available Not Available No t Available Eliquis 5 mg tablet TAKE 1 TABLET TWICE A DAY active Not Available Not Available No t Available baclofen 5 mg tablet TAKE 1 TABLET BY MOUTH TWICE DAILY FOR 10 DAYS NEEDED FOR BACK PAIN active Not Available Not Available No t Available Vitals Date Recorded Body height Body mass index (BMI) Body weight Body temperature Oxygen saturation Oxygen saturation in Arterial blood by Pulse oximetry Heart rate Systolic blood pressure Diastolic blood pressure Provider Name and Address Organization Details Last Updated DateTime 1 180.34 cm 30.3 kg/m2 32591.5 4 g 97.8 [degF] 98 % 98 % 62 /min 124 mm[Hg] 80 mm[Hg] Rosamaria Dennis [place] [facility] 1 11:02:44 Date Recorded Body height Body mass index (BMI) Body weight Body temperature Oxygen saturation Oxygen saturation in Arterial blood by Pulse oximetry Heart rate Systolic blood pressure Diastolic blood pressure Provider Name and Address Organization Details Last Updated DateTime 2 180.34 cm 30.7 kg/m2 05751.7 7 g 97.3 [degF] 95 % 95 % 57 /min 112 mm[Hg] 70 mm[Hg] Marily Holguin MA [facility] 2 11:28:40 Date Recorded Systolic blood pressure Diastolic blood pressure Provider Name and Address Organization Details Last Updated DateTime 08/04/2021 118 mm[Hg] 72 mm[Hg] Kristie Ghotra MD Attn: Accounting,[address] [place], [address], [facility] 08/04/2021 12:07:29 Date Recorded Body height Body mass index (BMI) Body weight Oxygen saturation Oxygen saturation in Arterial blood by Pulse oximetry Heart rate Body temperature Systolic blood pressure Diastolic blood pressure Provider Name and Address Organization Details Last Updated DateTime 3 180.34 cm 30.4 kg/m2 79519.1 4 g 97 % 97 % 64 /min 97.2 [degF] 135 mm[Hg] 81 mm[Hg] Rosamaria Dennis MA [facility] 3 10:13:03 Date Recorded Body weight Body mass index (BMI) Body height Systolic blood pressure Diastolic blood pressure Provider Name and Address Organization Details Last Updated DateTime 10/07/2023 20928.14 g 30.4 kg/m2 180.34 cm 124 mm[Hg] 77 mm[Hg] Rosamaria Dennis MA [facility] 4 11:08:19 Date Recorded Body height Body mass index (BMI) Body weight Oxygen saturation Oxygen saturation in Arterial blood by Pulse oximetry Heart rate Body temperature Systolic blood pressure Diastolic blood pressure Provider Name and Address Organization Details Last Updated DateTime 5 180.34 cm 31.2 kg/m2 866992. 69 g 96 % 96 % 63 /min 97 [degF] 118 mm[Hg] 78 mm[Hg] Jose G Sanchez MA [facility] 5 12:02:02 Social History Question Answer Notes LastModified by Organizat ion Details LastModified Time Tobacco Smoking Status Never Smoker Gracia mills, [facility] 05/14/2016 12:27:36 Do You Have An Advance Directive? No Information not available 08/04/2021 What Is Your Level Of Alcohol Consumption? Moderate Information not available 10/18/2020 Are You Blind Or Do You Have Difficulty Seeing? No Information not available 08/04/2021 What Is Your Level Of Caffeine Consumption? Occasional Information not available 11/19/2020 Are You Currently Employed? Yes Information not available 08/04/2021 Are You Deaf Or Do You Have Serious Difficulty Hearing? No Information not available 08/04/2021 What Type Of Diet Are You Following? REGULAR Information not available 08/04/2021 What Was The Date Of Your Most Recent Tobacco Screening? 10/07/2023 Information not available 10/07/2023 What Is Your Relationship Status? Information not available 08/04/2021 Do You Use Your Seat Belt Or Car Seat Routinely? Yes Information not available 08/04/2021 Do You Have Smoke And Carbon Monoxide Detectors In Your Home? Yes Information not available 08/04/2021 Are You Passively Exposed To Smoke? No Information no t available 08/04/2021 Do You Feel Stressed (tense, Restless, Nervous, Or Anxious, Or Unable To Sleep At Night)? [id number] Information not available 08/04/2021 Do You Use Any Illicit Or Recreational Drugs? No Information not available 10/18/2020 Has Tobacco Cessation Counseling Been Provided? No Information not available 10/18/2020 Do You Or Have You Ever Used Any Other Forms Of Tobacco Or Nicotine? No Information not available 10/18/2020 Sex: Male Functional Status Question Answer Note LastModified by Organizat ion Details LastModified Time Are you able to care for yourself? Yes Information not available 08/04/2021 What is your exercise level? Occasional Information not available 08/04/2021 Mental Status None recorded. Family History Relationship Description Onset Age of this Age Resolved Age Notes LastModified by Organization Details LastModified Time Father Cardiac arrhythmia a fib [email or web address] Not available 10/06 10:43:19 Father Cerebrovascu lar accident [email or web address] Not available 04/2017 12:30:57 Paternal Uncle Lymphoma finding [email or web address] Not available 2021 12:08:52 Paternal Uncle Malignant tumor of prostate [email or web address] Not available 2016 12:27:32 Mother Malignant tumor of lung [email or web address] Not available 12/2016 13:58:24 Brother Coronary arterioscler osis 62 [email or web address] Not available 2022 10:31:31 Brother Cardiac arrhythmia a fib [email or web address] Not available 10/06 10:43:05 Medical History Condition Response Coronary Artery Disease N Other Y Atrial Fibrillation N Kidney or Bladder Problems N Thyroid Problems N GI Problems N Depression N COPD N Blood Clots N Skin Problems N Anemia N Heart Attack ([place]) N Anxiety Disorder N Diabetes N Muscle, Joint, or Bone Problems Y Seizures/Epilepsy N Acid Reflux (GERD) N Cancer N Stroke N Asthma N Allergies N High Cholesterol Y Hepatitis N Liver Disease N Headaches N Heart Failure N Osteoporosis N Immunizations Vaccine Type Date Status Note Provider Nam e and Address Organization Details Recorded Time zoster recombinant 0 completed Not Available [facility] 05/07/2023 10:47:23 zoster recombinant 1 completed Not Available [facility] 05/07/2023 10:47:23 COVID-19, mRNA, LNP-S, PF, 30 mcg/0.3 mL dose 1 completed Not Available [facility] 05/07/2023 10:47:24 COVID-19, mRNA, LNP-S, PF, 30 mcg/0.3 mL dose 1 completed Not Available [facility] 05/07/2023 10:47:24 Influenza, MDCK, quadrivalent, PF 0 completed Not Available [facility] 05/07/2023 10:47:23 Influenza, MDCK, quadrivalent, PF 2 completed Not Available [facility] 05/07/2023 10:47:23 COVID-19, mRNA, LNP-S, PF, 30 mcg/0.3 mL dose 1 completed Not Available [facility] 05/07/2023 10:47:24 COVID-19, mRNA, LNP-S, PF, 30 mcg/0.3 mL dose, adriana-sucrose 2 completed Not Available [facility] 05/07/2023 10:47:24 COVID-19, mRNA, LNP-S, bivalent, PF, 30 mcg/0.3 mL dose 2 completed Not Available [facility] 05/07/2023 10:47:24 COVID-19, mRNA, LNP-S, PF, 30 mcg/0.3 mL dose 1 completed Kristie Ghotra MD Attn: Accounting,[address], [place], [address] [place] [address], [place] [facility] 10/07/2023 11:51:03 Pneumococcal conjugate PCV20, polysaccharide [id number] conjugate, adjuvant, PF 4 completed BENJAMIN Roach Attn: Accounting[address], [place], [address] [place] [address], [place] [facility] 06/26/2024 12:13:35 Tdap 0 completed Silver Moya MA null, [place] [facility] 06/12/2019 12:25:35 Influenza, split virus, trivalent, preservative 1 completed Kristie Ghotra MD Attn: Accounting[address], [place], [address] [place] [address], [place] [facility] 10/05/2022 22:26:19 Tdap 9 completed Kristie Ghotra MD Attn: Accounting[address], [place], [address] [place] [address], [place] [facility] 10/05/2022 22:26:19 Past Encounters Encounter ID Performer Location Encounter Start Date Encounter Closed Date Diagnosis/Indication Diagnosis SNOMED-CT Code Diagnosis ICD10 Code Diagnosis Note [id number] Kristie Ghotra MD [facility] [address] [place] [id number] 06/10/2016 10:10:22 06/11/2016 13:34:38 Benign essential hypertension [id number] I10 no change in exercise-- bike riding and call if palpitatio ns change Benign pro static hyperplasia without outflow obstruction [id number] N40.0 Administra tion of viral vaccine 63325183 Z23 Varicose v eins of lower extremity 95542155 I83.556 [id number] Kellygena read [facility] [address] [place] [address] 09/24/2016 10:04:31 2016 15:12:01 Benign prostatic hyperplasia 585297358 N40.1 [id number] Gracia Martinez [facility] [address] [place] [address] 06/11/2017 09:34:19 06/11/2017 15:10:57 Benign essential hypertension 4997438 I10 Pure hypercholesterolemia 624909130 E78.00 [id number] Kristie Ghotra MD [facility] [address] [place] [address] 06/15/2017 16:22:00 06/18/2017 10:22:34 Adult health examination 013175952 Z00.00 continue to watch diet, decreasing any extra sugar intake for even tighter glucose control. continue to work out 4x/week. Administra tion of viral vaccine 72230688 Z23 [id number] Tali Stallworthcarmenfred oliver [facility] [address] [place] [address] 06/22/2018 16:01:53 06/23/2018 08:41:45 Adult health examination 286960987 Z00.00 continue to watch diet, decreasing any extra sugar intake for even tighter glucose control. continue to work out 4x/week. Benign ess ential hypertension 0294473 I10 Benign pro static hyperplasia 188906620 N40.1 History of male erectile disorder 151168778 Z87.561 [id number] Kristie Ghotra MD [facility] [address] [place] [address] 06/12/2019 10:54:02 06/12/2019 13:50:26 Benign prostatic hyperplasia 249535219 N40.1 you will taper off of the tamsulosin and start the FINASTERDI E once daily now-- no need to wait until off TAMSULOSIN to start new med Adult heal th examination 286445678 Z00.00 continue to watch diet, decreasing any extra sugar intake for even tighter glucose control. continue to work out 3-5x/week. Benign ess ential hypertension 5725998 I10 controlled Pure hypercholesterolemia 511412532 E78.00 will screen the cholestero l today Long-term drug therapy 896628470 Z79.899 routine labs today Bilateral knee pain 1187 910424 5131066 M25.561 M25.562 consider seeing orthopedis t to see about management Administra tion of diphtheria, pertussis, and tetanus vaccine 962644797 Z23 routine booster today Influenza vaccination declined 804025853 Z28.21 declines the flu shot [id number] Kristie Ghotra MD [facility] [address] [place] [address] 07/26/2019 11:55:12 07/26/2019 13:36:12 Sore throat 330793173 J02.9 I reassured patient that the exam today is void of significan t finding on exam-- the empiric treatment with oral antibiotic and using COOL MIST VAPORIZER to humidify bedroom is advised. Call if not improving -- will see about arranging a visit with ENT if that is the case [id number] Kristie Ghotra MD [facility] [address] [place] [address] 07/17/2020 11:21:13 07/17/2020 14:23:56 Adult health examination 607487190 Z00.00 continue to watch diet, decreasing any extra sugar intake for even tighter glucose control. continue to work out 3-5x/week. Glucose le ke outside reference range 222344520 R73.09 Benign ess ential hypertension 2080575 I10 controlled Benign pro static hyperplasia 236894566 N40.1 the FINASTERDI E once daily now Long-term drug therapy 339063356 Z79.899 Pure hypercholesterolemia 765973865 E78.00 [id number] POPPY Soto [facility] [address] [place] [address] 10/18/2020 15:17:21 10/21/2020 10:18:07 Feeling of lump in throat 598291625 F45.8 1.Avoid lying flat 3 to 4 hours after eating or drinking. 2.Elevate the head of bed 4-8 inches. 3.Avoid tight clothing around the waist. 4.Decrease dietary fat intake. 5. Avoid acidic foods (citrus and tomato-bas ed products), alcohol, caffeinate d beverages, chocolate, onions, garlic, salt, and peppermint oil. 6. Avoid large meals. 7. Avoid drinking coffee, or carbonated beverages. 8. Weight loss can help with symptoms, try to diet and exercise. RTc in 3-4 weeks if symptoms persist, we will order Thyroid scan and refer to GI or ENT [id number] Norma Fair, [employer] [facility] [address] [place] [address] 11/19/2020 10:56:48 11/19/2020 13:26:21 Feeling of lump in throat 887967780 F45.8 resolved, no longer taking PPI. Rec he just take H2 evi PRN verbalized understand ing. Skin lesion 03171846 L98 .9 Antibody measurement 352 7003 Z01.84 [id number] Kristie Ghotra MD [facility] [address] [facility] [address] [place] [address] 08/04/2021 11:06:02 08/04/2021 13:43:46 Adult health examination 809066183 Z00.00 continue to watch diet, decreasing any extra sugar intake for even tighter glucose control. continue to work out 3-5x/week. Benign pro static hyperplasia 951167836 N40.1 the FINASTERID E once daily now but not sure if effective and would like to try the tadalafil as option for managing both ED and BPH-- order sent and will check cost-- potentiall y stopping vardenafil and finasterid e-- I advised to use the finasterid e along with tadalafil for 1 month as transition Benign ess ential hypertension 3736720 I10 controlled Glucose le ke outside reference range 081373227 R73.09 Pure hypercholesterolemia 732979162 E78.00 Long-term drug therapy 414297770 Z79.899 HIV screening 797781027 Z11.4 [id number] Kristie Ghotra MD [facility] [address] [place] [address] 10/06/2022 09:51:44 10/07/2022 10:06:53 Benign essential hypertension 0594158 I10 control is acceptable Glucose le ke outside reference range 095515597 R73.09 continue to watch diet, decreasing any extra sugar intake for even tighter glucose control. continue to work out 3-5x/week. Start vit D 1,000 iu daily Long-term drug therapy 454356335 Z79.899 chek liver and kidneys and fasting glucose Benign pro static hyperplasia 738999643 N40.1 pat uncle had prostate cancer and he has LUTS-- seeing urologist- - will contact me with name of med he cannot afford due to considerat ion to use [facility] program for med Adult heal th examination 111902465 Z00.00 exercise and eat balanced diet. 7 fruits and vegetables per day-- try to eat no sugar added to anything. strive to eat Real food ' Strive for 10,000 steps per day-- exercise 2 1/2 hours per week or more Hypercholesterolemia 136 93237 E78.00 lipid recheck-- goals of <170 TC and < 70 LDL Screening for malignant neoplasm of prostate 503234270 Z12.5 pat uncle had prostate cancer and he has LUTS-- seeing urologist- - will contact me with name of med he cannot afford due to considerat [employer] to use [facility] program for med Intermitte nt palpitations 673288877 R00.2 check mag and thyroid Right inguinal hernia 23 4144987 K40.90 he is advised warning signs related to the hernia-- but I would advise surgical correction once cardiac clearance is achieved [id number] Kristie Ghotra MD [facility] [address] [place] [address] 10/07/2023 10:58:11 10/07/2023 14:46:33 Adult health examination 388228256 Z00.00 Health Risk Assessment collected and reviewedhe has advanced directives in placehe reports awareness of safety / fall riskshe reports eating healthy foodshe reports regular exercise Benign pro static hyperplasia 778495119 N40.1 he would like to cont med and reports plan to see urologist next month-- with PSA today and asked to send to urologist Administra tion of pneumococcal vaccine 16674200 Z23 pt ed and given PREVNAR 20 today Screening for malignant neoplasm of colon 753236536 Z12.11 due in Jun 2024 for 10 year colonoscop y-- order sent to Dr Mane singer ke outside reference range 215951280 R73.09 continue to watch diet, decreasing any extra sugar intake for even tighter glucose control. continue to work out 3-5x/week. Lab today Pure hypercholesterolemia 436274445 E78.00 will check lipids with a copy to his cardiologi st Paroxysmal atrial fibrillation 349110181 I48.0 will check magnesium and thyroid with a copy to his cardiologi st Long-term drug therapy 245234890 Z79.899 check liver and kidneys and fasting glucose with a copy to his cardiologi st Abdominal aortic aneurysm screening 629752373 Z13.6 advised screening for AAA and he agrees to schedule at [facility] HIV screen ing declined 7394117584 37554 Z53.20 offered and declined screening for HIV Hepatitis C screening declined 7081983152 5105 Z53.20 offered and declined screening for Hep C Venereal d isease screening 913445676 Z11.3 offered and declined screening for any STI [id number] BENJAMIN Roach [facility] [address] [place] [address] 06/26/2024 11:55:16 06/27/2024 10:30:28 Low back pain 506797263 M54.50 Sciatica 27198864 M54.32 No sitting with anything in back pocketX-ra ys for further evaluation Dx likely dx of sciaticaRe commend PT which patient declines, instead will do home exercisesI f no improvemen t will need mri/pain management referral 1. Modify your activity for 3-6 weeks. 2. Avoid heavy lifting 3. Use positions that promote comfort 4. Gradually resume activities as tolerated, which include gradually increasing low-stress aerobic exercise. 5. Ice for 20-30 minutes several times a day for the first 48 hours after pain started. 6. Apply heat for 20-30 minutes several times a day 48 hours after the pain started. 7. Healing can take up to 6 weeks 8. Strengthen ing exercises once back pain is gone. Pain of le ft hip joint 3562135829 45323 M25.552 Obesity 579194544 E66.9 Health Concerns Section Related Observation LastModified by Organization Detai ls LastModified Time None Recorded Concern Status LastModified by Organization Details LastModified Time None Recorded Advance Directives Directive N: Payers Encounter Date Sequence Insurance Name Policy Number Policy Roach Covered Member ID Roach Member ID Guarantor Name 11/19/2020 1 [employer] - ALLIED BENEFITS - OPEN ACCESS FCB Kristie Coley [id number] Marv A Vianca 08/04/2021 1 [employer] - ALLIED BENEFITS - OPEN ACCESS FCB Kristie Coley [id number] Marv A Vianca 10/06/2022 1 [employer] - UNICARE FCB Kristie Coley [id number] Marv A Vianca 10/07/2023 1 [place] Marv A Vianca [id number] Marv A Vianca 10/07/2023 2 [place] [id number] Marv A Vianca [id number] Marv A Vianca 06/26/2024 1 [place] Marv A Vianca [id number] Marv A Vianca 06/26/2024 2 [place] [id number] Marv A Vianca [id number] Marv A Vianca Notes Date Note Type Note Provider Name and Address Organization Details Recorded Time 11/19/2020 text/html Reflux/GERDRepor mikaela bypatient.SymptomsA symptomatic; no difficulty swallowing; no pain swallowing; no postprandial pain Severity:improving Duration:present for 1-6 months Onset/Timing:gone now Context:non-smoker; no drug/alcohol abuse; no drug alcohol withdrawal; not related to food/drink; PT states that in the last week his symptoms has subsided and hasnt been taking medication for it just to see how he does Associated Symptoms:no frequent coughing; no feeling of fullness/mass in throat; no hoarseness; no food getting stuck; no belching/burping; no nausea; no vomiting; not vomiting blood; no regurgitation; no shortness of breath; no chest pain; no heartburn; no difficulty swallowing; no pain when swallowing; no bad taste; no decreased appetite; no weight loss; no black/tarry stools; no fatigue; no throat painNotes:in October he was having a lump in throatskin lesion on back rough feeling. Does not itch or bleed Went over medications with pt pt states that he doesnt need any refills on todays visit. PT states that he would like a skin tag looked at as well located on the back area POPPY Soto Attn: Accounting, [address] , [place], [address], [place] [facility] 11/19/2020 11:50:20 08/04/2021 text/html patient is here for annualfasting for blood testing today Kristie Ghotra MD Attn: Accounting, [address] [facility], [place], [address], [place] [facility] 08/04/2021 12:29:36 10/06/2022 text/html here for an matthew al check up Kristie Ghotra MD Attn: Accounting, [address] [facility], [place], [address], [place] [facility] 10/06/2022 10:58:55 10/07/2023 text/html MAW 2Reported bypatient.Diet and Nutrition:healthy diet; discussed vitamin and supplement use; discussed maintaining calcium balance; mediterranean diet Fracture Risk:no history of fractures Concentration and Memory:no decreased concentrating ability; no memory lapses or loss Speech/Motor difficulties:no speech difficulties; no difficulty with fine manipulative tasks; no slowed reaction time Hearing:no loss of hearing;requires TV, radio at high volume Vision:wears glasses Activities of Daily Living:able to bathe with limited or no assistance; able to contol urination and bowels; able to dress with limited or no assistance; able to feed self with limited or no assistance; able to get out of chair or bed with limited or no assistance; able to groom with limited or no assistance; able to toilet with limited or no assistance Instrumental Activities of Daily Living:able to do house work with limited or no assistance; able to grocery shop with limited or no assistance; able to manage medications with limited or no assistance; able to manage money with limited or no assistance; able to prepare meals with limited or no assistance; able to use the phone with limited or no assistance here for an annual check up Kristie Ghotra MD Attn: Accounting, [address] [place], [address], [facility] 10/07/2023 13:31:21 06/26/2024 text/html Hip(s)Reported bypatient.Location: left Quality:dull; deep; frequent; constant; severity varies Severity:pain level 2/3/10; worst pain 8/10 Duration:6+ months; continuous since onset Context:cannot identify Aggravating Factors:sitting; standing; lying down; walking; twisting; weightbearing; exercise; getting out of bed; going from sit to stand; upstairs; downstairs; daytime; problems only occur when over do things, cant sleep on the left side Associated Symptoms:no weakness; no numbness; no tingling; no swelling; no redness; no warmth; no catching/locking; no popping/clicking; no buckling; no grinding; no instability; no drainage; no fever; no chills; no weight loss; no change in bowel/bladder habits;radiation down leg Previous Surgery:none; knee surgery around the age of 16 Prior Imaging:none Previous Injections:none Previous PT:none Work Related:no Working:regular duty hip pain been on going for 6 month now, radiates down to the knee and some times to the ankle. Left side of hip and buttock areaHx of bad back 10 years ago but typically doesn't bother hipHas taken tylenol for the pain which does help a littleLast week could hardly get up and down the steps BENJAMIN Roach Attn: Accounting[address] [place], [address], [facility] 06/26/2024 14:17:59
--- OUTSIDE RECORDS SUMMARY | 2024-07-31 14:49 | XMS_ITS | Referral Summary ---
Author Organization [facility] Address [address] [place] [address] Care Team Providers Care Certified Medical Technician Name Role Phone Graeme Albarado MD Primary Care Provider [phone] Negrito Kirby MD Unavailable [phone] Allergies No known active allergies Medications metoprolol [...] needed. 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 Continue compression therapy. 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 Will follow-up in 2-3 weeks. Assessment & Plan (01/31/2019 10:22 AM CDT): Impression: Stable varicose vein left lower extremity which are not painful. His edema is controlled with compression therapy. Plan: Continue daily compression therapy. Patient to follow up on as-needed basis. 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 Assessment & Plan (01/31/2019 10:22 AM CDT): Impression: Stable hypertension. Plan: Continue current antihypertensive regimen as directed by PCP. 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 Gender Identity Not on file Sexual Orientation Not on file Last Filed Vital Signs Vital Sign Reading Time Taken Comments Blood Pressure 120/70 10/08/2023 9:44 AM CDT Pulse 54 10/08/2023 9:44 AM CDT Temperature 36.2 C (97.1 F) 06/30/2023 10:10 AM TELEGRAPHIC TYPEWRITER OPERATOR CHIEF Respiratory Rate 14 06/30/2023 10:4 0 AM TELEGRAPHIC TYPEWRITER OPERATOR CHIEF Oxygen Saturation 96% 10/08/2023 9:44 AM CDT Inhaled Oxygen Concentration - - Weight 100.1 kg (220 lb 9.6 oz) 10/08/2023 9:44 AM CDT Height 177.8 cm (5' 10 ) 10/08/2023 9:44 AM CDT Body Mass Index 31.65 10/08/2023 9:44 AM CDT Plan of Treatment Not on file Medical Devices Implanted Type Area Carpet Tile Layer Device Identifier Shelf Expiration Date Model / Serial / Lot [employer]/C R Bard Mesh Surgical Mid Anatomical Synthetic Patch 3dmax 5x7in [id number] - [id number] Implanted:Qty: 1 on 06/30/2023 by Negrito Kirby MD at [facility] Right: Abdomen [employer]/C R Bard [id number] 01/29/2028 [id number] / / [id number] Insurance [employer] OPEN ACCESS MEDICARE [facility] MEDICARE SUPPLEMENT Care Teams Certified Medical Technician Relationship Specialty Start Date End Date Graeme Albarado MD [address] [address] PCP - General Family Medicine 12/30/18 Negrito Kirby MD [address] [place] [id number] Consulting Physician General Surgery 06/30/23
--- OUTSIDE RECORDS SUMMARY | 2024-07-31 14:49 | XMS_ITS | Clinical Summary ---
Author Organization [facility] Address [address] [place] [id number] Care Team Providers Care Video Game Producer Name Role Phone Unavailable Primary Care Provider Unavailabl e Social History Tobacco Use Types Packs/Day Years Used Date Smoking Tobacco: Never Assessed Sex and Gender Information Value Date Recorded Sex Assigned at Not on file Legal Sex Male 8:24 PM CDT Gender Identity Not on file Sexual Orientation Not on file Plan of Treatment Health Maintenance Due Date Last Done Comments Colorectal Cancer Screening Colonoscopy (10 Years) 1958 Hepatitis C 1976 DTaP, Tdap and Td Vaccines ( 1 - Tdap) 1977 Zoster Vaccines (1 of 2) 2008 Pneumococcal Vaccine: 65+ Ye ars (1 of 1 - PCV) 09/26/2023 COVID-19 Vaccine ( - 2023-2 5 season) 2024 Influenza Adult (#1) 2024 RSV Immunization or 60+ Years (1 - 1-dose 75+ series) 2033 Meningococcal B Vaccine Aged Out No l onger eligible based on patient's age to complete this topic Meningococcal Vaccine Aged Out No val elvin eligible based on patient's age to complete this topic Pneumococcal Vaccine: Pediat rics (0 to 5 Years) and At-Risk Patients (6 to 64 Years) Aged Out No longer eligible b ased on patient's age to complete this topic RSV Immunizations Under 20 Months Aged Out No longer eligible based on patient's age to complete this topic
== END 2024-07-31 13:21 | disposition home or self-care (01) ==
LOC: ANHIMG 13:33
PROVIDERS: PCP Family Medicine; Visit Provider Physician Assistant
DX: M47.896 Other spondylosis, lumbar region (principal); M16.12 Unilateral primary osteoarthritis, left hip
CPT/HCPCS: 72100; 73502

== ENCOUNTER 2024-10-24 08:58 | Outpatient (CLI) | payer MEDICARE, SELFPAY ==
--- NOTE | ~2024-10-24 | MR_ITS ---
MRI of the lumbar spine Clinical History: Degenerative disc disease Technique: Axial T2-weighted images, and sagittal T1-weighted, T2-weighted, and T2 fat-sat images wer e acquired. Findings: There is no fracture or subluxation of lumbar spine. Vertebral bodies maintain normal heigh t and alignment. No suspicious bone marrow signal abnormality seen. At L1-L2, there is no disc bulge or herniation. No spinal canal stenosis or neural foraminal narrowi ng. At L2-L3, there is minimal disc bulge with moderate facet arthropathy. No central canal stenosis. The re is moderate bilateral neural foraminal narrowing. At L3-L4, there is degenerative distended. There is minimal disc bulge and minimal facet hypertrophy. No central canal stenosis. There is minimal right neural foraminal narrowing. Left neural foramen pr eserved. At L4-L5, there is mild disc bulge with moderate facet arthropathy. No central canal stenosis. There is moderate bilateral neural foraminal narrowing. At L5-S1, there is no disc bulge or herniation. There is moderate facet arthropathy. No central canal stenosis. There is mild right neural foraminal narrowing. Left neural foramen preserved. Paravertebral soft tissues are unremarkable. Impression: Mild degenerative spondylosis overall, as detailed above. Reviewed, dictated and finalized at location . Impression: Mild degenerative spondylosis overall, as detailed above.
== END 2024-10-24 08:59 | disposition home or self-care (01) ==
LOC: GOSHIMG 08:59
PROVIDERS: PCP Family Medicine; Visit Provider Physician Assistant
DX: M51.370 Other intervertebral disc degeneration, lumbosacral region with discogenic back pain only (principal); M47.896 Other spondylosis, lumbar region
CPT/HCPCS: 72148